=== PATIENT | female | born 2005 | race Caucasian/White ===

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

== ENCOUNTER 2023-07-21 09:03 | Emergency (ER) | payer OTHER ==
[~2023-07-21] VITALS: Ht 167.6 cm; Wt 72.6 kg
[~2023-07-21 09:03] MED LIST: CARAFATE1 GM PO; GABAPENTIN600 MG PO; LEVOTHYROXINE25 MCG PO; ONDANSETRON ODT8 MG PO; OXCARBAZEPINE150 MG PO; PORTIA1 EACH PO; SERTRALINE HCL50 MG PO
[2023-07-21 10:18] LABS: EOSINOPHILS 2.7 % (0-6); HEMOGLOBIN 12.8 g/dL (12.0-18.0); LYMPHOCYTES 30.6 % (24-44); MCH 29.7 (27-36); MCHC 33.8 g/dl (30-36); MONOCYTES 6.7 % (0-12); PLATELET COUNT 305 K/uL (140-440); RBC 4.31 M/ul (4.3-5.7); RDW 13.4 (10.5-15.0)
[2023-07-21 10:43] LABS: ALBUMIN 3.6 g/dL (3.4-5.0); ALBUMIN/GLOBULIN RATIO 1.06 (1.1-2.4); ANION GAP 11.9 (7-21); BILIRUBIN, TOTAL 0.4 ng/dL (0.2-1.0); BUN/CREATININE RATIO 13.11 (6.0-28.6); CALCIUM 8.6 mg/dL (8.5-10.1); CREATININE, SERUM 0.61 mg/dL (0.55-1.02); POTASSIUM 3.9 mmol/L (3.5-5.1); TSH, 3RD GENERATION 1.196 uIU/mL (0.516-4.130)
[2023-07-21 11:50] VITALS: BP 91/51
--- NOTE | 2023-07-22 07:13 | EKG ---
[facility] [address] [facility] [place], [place] [address] Signed Normal sinus rhythm with sinus arrhythmia Normal ECG No previous ECGs available Confirmed by CANDACE HOYOS MD ([id number]) on 07/22/2023 7:13:16 AM Electronically Signed By: CANDACE HOYOS 07/22/23712 PATIENT NAME: CARTER GÓMEZ Electrocardiogram DATE OF : [birth year] PHYSICIAN: CANDACE HOYOS REPORT #: [id number] REPORT IS CONFIDENTIAL AND NOT TO BE RELEASED WITHOUT AUTHORIZATION
== END 2023-07-21 11:50 | disposition home or self-care (01) ==
LOC: ED 09:03
PROVIDERS: Emergency Medicine
DX: R55 Syncope and collapse (principal); E27.40 Unspecified adrenocortical insufficiency; E03.9 Hypothyroidism, unspecified; Z91.013 Allergy to seafood; Z79.899 Other long term (current) drug therapy; Z79.890 Hormone replacement therapy; Z79.3 Long term (current) use of hormonal contraceptives
CPT/HCPCS: 36415; 70551; 80053; 84443; 84703; 85025; 93005; 93010; 99284-25

== ENCOUNTER 2024-09-07 17:25 | Emergency (ER) | payer OTHER ==
[~2024-09-07] VITALS: Ht 167.6 cm; Wt 68.5 kg
[~2024-09-07 17:25] MED LIST changes: +LAMOTRIGINE100 MG PO
[2024-09-07 17:49] LABS: BILIRUBIN, URINE NEGATIVE (negative); BLOOD/HGB, URINE NEGATIVE (Negative); KETONE, URINE NEGATIVE (Negative); LEUK ESTERASE, URINE NEGATIVE (negative); NITRITE, URINE NEGATIVE (negative)
[2024-09-07] MEDS ORDERED: ATOMOXETINE HCL40 MG PO (17:55)
[2024-09-07] MEDS ORDERED: METOPROLOL SUCC25 MG PO (17:55)
[2024-09-07] MEDS ORDERED: SUMATRIPTAN SUC50 MG PO (17:55)
[2024-09-07] MEDS ORDERED: ondansetron HCL 4 MG/2 ML VIAL IV ONE ×2 (18:00→20:00)
[2024-09-07 18:13] LABS: BASOPHILS 0.6 % (0-2); EOSINOPHILS 2.6 % (0-6); HEMATOCRIT 40.1 % (35.0-50.0); HEMOGLOBIN 13.5 g/dL (12.0-18.0); LYMPHOCYTES 35.3 % (24-44); MCH 29.8 (27-36); MCHC 33.8 g/dl (30-36); MCV 88.2 fl (81-99); MONOCYTES 8.6 % (0-12); NEUTROPHILS 52.9 % (39-80); PLATELET COUNT 302 K/uL (140-440); RBC 4.54 M/ul (4.3-5.7)
[2024-09-07 18:33] LABS: ALBUMIN 3.8 g/dL (3.4-5.0); ALBUMIN/GLOBULIN RATIO 1.09 (1.1-2.4); ANION GAP 14.5 (7-21); BILIRUBIN, TOTAL 0.4 ng/dL (0.2-1.0); BUN/CREATININE RATIO 10.29 (6.0-28.6); CALCIUM 8.9 mg/dL (8.5-10.1); CREATININE, SERUM 0.68 mg/dL (0.55-1.02); MAGNESIUM 1.7 mg/dL (1.8-2.4); POTASSIUM 3.5 mmol/L (3.5-5.1); PROTEIN, TOTAL 7.3 g/dL (6.4-8.2)
[2024-09-07] MEDS ORDERED: MORPHINE SULFATE 4 MG/ML VIAL IV ONE (20:00)
[2024-09-07] MEDS ORDERED: SODIUM CHLORIDE 0.9% 500 ML IV PRN (20:00)
[2024-09-07] MEDS ORDERED: KETOROLAC TROMETHAMINE 30 MG/ML VIAL IV ONE (21:15)
[2024-09-07] MEDS ORDERED: MIRALAX17 GM PO (21:39)
[2024-09-07] MEDS ORDERED: ONDANSETRON ODT8 MG PO ×2 (21:39→21:40)
[2024-09-07] MEDS ORDERED: LACTULOSE 20 GM/30 ML CUP PO ONE (21:45)
[2024-09-07] MEDS ORDERED: TRAMADOL HCL 50 MG HOME.PACK PO ONE (21:45)
[2024-09-07] MEDS ORDERED: ONDANSETRON 4 MG HOME.PACK SL ONE (21:45)
[2024-09-07 21:55] VITALS: BP 113/82
== END 2024-09-07 21:55 | disposition home or self-care (01) ==
LOC: ED 17:25
PROVIDERS: Emergency Medicine
DX: R10.31 Right lower quadrant pain (principal); Z91.013 Allergy to seafood; Z79.899 Other long term (current) drug therapy
CPT/HCPCS: 36415; 74177; 80053; 81003; 83690; 83735; 84703; 85025; 96361; 96375; 96376; 99284-25; A9270; J1885; J2270; J2405; J7040; Q9967